=== PATIENT | male | born 1940 | race Caucasian/White ===

== ENCOUNTER → 2016-10-09 | Outpatient (REF) | payer MEDICARE ==
[~2016-10-09] MED LIST: /ESOM40CA PO; ACET500C; ADVIL; ASPI325T OR; CIPR25SS OR; DIAZ2TAB PO; DIAZ5TAB; ECOT500T; NEXI20CA PO; SYSTANE OP; TESTPOW5; TRAM50TA2; TRAM50TA2 OR; ZANA4CAP; [UNRECOGNIZED DRUG - REMARK]; [UNRECOGNIZED DRUG - REMARK]; [UNRECOGNIZED DRUG - REMARK]; [UNRECOGNIZED DRUG - REMARK]; pennsaid TOP
[2016-10-09 11:27] LABS: MEAN CORPUSCULAR HEMOGLOBIN 30.4 pg (27.0-33.0); MEAN CORPUSCULAR HGB CONC 33.4 g/dl (32.0-36.5); MEAN CORPUSCULAR VOLUME 90.8 fl (80.0-96.0); RED CELL DISTRIBUTION WIDTH 13.3 % (11.5-14.5); WHITE BLOOD COUNT 5.4 K/mm3 (4.0-10.0)
[2016-10-09 12:25] LABS: URIC ACID 6.5 MG/DL (3.5-7.2)
[2016-10-09 12:33] LABS: ALKALINE PHOSPHATASE 67 U/L (45-117); ALT/SGPT 25 U/L (12-78); ANION GAP 5 MEQ/L (8-16); AST/SGOT 20 U/L (15-37); BILIRUBIN,TOTAL 0.8 MG/DL (0.2-1.0); BLOOD UREA NITROGEN 23 MG/DL (7-18); CALCIUM LEVEL 9.9 MG/DL (8.8-10.2); CARBON DIOXIDE LEVEL 29 MEQ/L (21-32); CHLORIDE LEVEL 107 MEQ/L (98-107); CREATININE FOR GFR 1.56 MG/DL (0.70-1.30); GLOMERULAR FILTRATION RATE 46.3 (>42); GLUCOSE, FASTING 99 MG/DL (83-110); POTASSIUM SERUM 4.7 MEQ/L (3.5-5.1); SODIUM LEVEL 141 MEQ/L (136-145)
[2016-10-09 12:34] LABS: ALBUMIN/GLOBULIN RATIO 1.25 (1.00-1.93); TOTAL PROTEIN 7.2 GM/DL (6.4-8.2)
== END ==
LOC: M SFHCCLAY 07:48
PROVIDERS: ATTEND Family Medicine
DX: M79.1 Myalgia (principal); M25.50 Pain in unspecified joint
CPT/HCPCS: 80053; 82550; 84550; 85027; 85652; 86038; 86140; 86431; G0463

== ENCOUNTER → 2016-11-26 | Outpatient (CLI) | payer MEDICARE ==
--- NOTE | 2016-11-26 14:39 | REP ---
RIGHT HIP, TWO VIEWS: HISTORY: Groin strain. There is no acute fracture or dislocation. There is narrowing of the joint space. There is sclerosis of the acetabulum. IMPRESSION: Degenerative change as described above.
== END ==
LOC: M CLY 13:11
PROVIDERS: ATTEND Family Medicine
DX: S76.211A Strain of adductor muscle, fascia and tendon of right thigh, initial encounter (principal); X58.XXXA Exposure to other specified factors, initial encounter; Y92.89 Other specified places as the place of occurrence of the external cause; Y93.89 Activity, other specified; Y99.8 Other external cause status
CPT/HCPCS: 73502; G0463

== ENCOUNTER → 2016-12-23 | Outpatient (CLI) | payer MEDICARE ==
--- NOTE | 2016-12-23 08:49 | REP ---
MRI right hip without contrast: History: New right-sided pain. There is apparently a remote prior history of testicular and renal carcinoma in the and a more recent history of bladder cancer 3 years ago. Comparison radiographs are from November 26, 2016. Technique: Large field of view coronal T1 and STIR T2 sequences of both hips are acquired. In addition, smaller field of view high resolution axial, coronal and sagittal images of the right hip were obtained with proton density and T2-weighted scans with fat saturation. Findings: There is an infiltrative mass replacing the marrow in the right superior acetabular region of the iliac bone consistent with metastatic lesion. This measures 4.2 x 3.3 x 4.8 cm. There is some early cortical destruction. There is a T2-weighted edema pattern anterior to this segment of the iliac bone consistent with cortical penetration and early extraosseous extension versus reactive edema. Lesion is low in signal intensity on T1 and hyperintense on T2-weighted imaging. There is a second smaller lesion in the subtrochanteric femur on the right measuring only 10 mm. There is an area of mixed signal intensity in the right sacrum adjacent the SI joint which appears to be degenerative. There is no evidence of pelvic mass or adenopathy. There is diverticulosis in the left colon noted. No evidence of hip joint effusion is seen on either side. There are some degenerative changes in both acetabular labral cartilages, left greater than right. Impression: There is a 4.8 cm marrow replacement mass in the right iliac bone along the superior acetabular margin compatible with a bony metastasis. A second small lesion in the right proximal femur is also noted 1 cm in diameter. The location and size of the iliac bone lesion indicate a risk of pathologic fracture. Recommend radionuclide bone scan and consideration be given to needle biopsy. Signed by Jus Hernandez MD 12/23/2016 09:05 A
--- NOTE | 2016-12-23 09:17 | REP ---
MRI LUMBAR SPINE WITHOUT CONTRAST: 12/23/2016. Comparison: MRI 04/26/2006, x-ray 03/18/2016. Clinical history: Low back pain. Technique: Sagittal T1, T2 and STIR images with axial T1 and T2 sequences. Findings: Slight reduction of the normal lordosis is maintained. Vertebral body heights were intact throughout. There is a fairly large vertebral hemangioma in the left side of the L3 vertebral body, unchanged. There is loss of disc water signal throughout the lumbar spine. Disc space is narrowed at L5-S1 with discogenic endplate changes anteriorly. There is slight narrowing of L4-5 and L2-3 disc levels sparing the other levels. No paraspinal mass. Aorta grossly intact. Conus terminates at T12-L1. T11-12, T12-L1 and L1-2 show no disc bulge or herniation and no spinal or foraminal stenosis. At L2-3, there is minimal broad-based disc bulge without central canal or foraminal stenosis. No nerve root compression. Bulges do extend into the foramina, however some minor hypertrophic facet changes. At L3-4, there is a broad-based disc bulge flattening ventral thecal sac. Bulge extends into the foramina. There is some mild encroachment on the right and with a bulge abutting the L3 nerve root similarly on the left. Slight impression on the L3 nerve root by the bulge in the foramen. At L4-5, there is also a mild broad-based disc bulge flattening the ventral thecal sac. Cross-sectional area of the canal was ample. Foramina are adequate on the left and show very mild impression upon the L4 nerve root by disc bulge and facet arthropathy. At L5-S1, there is mild broad-based disc bulge with small central disc protrusion. This does not abut or displace the S1 nerve roots in the central canal. The cross-sectional area of the central canal was adequate. The bulge extends into the foramina. There is mild encroachment on the right and left due to combined factors. Facet arthropathy noted. Impression: 1. Multilevel degenerative disc disease from L2-3 through L5-S1 with foraminal encroachment and mild nerve root compression by the disc bulge, facet arthritis at levels described above. 2. Bulges from L2-3 through L5-S1 with small central disc protrusion at L5-S1. No significant central canal stenosis. Signed by Darci Alberts MD 12/23/2016 12:26 P
== END ==
LOC: M RAD 06:34
PROVIDERS: ATTEND Family Medicine
DX: R10.30 Lower abdominal pain, unspecified (principal); M25.559 Pain in unspecified hip; M51.26 Other intervertebral disc displacement, lumbar region; M51.36 Other intervertebral disc degeneration, lumbar region; M47.896 Other spondylosis, lumbar region; M48.06 Spinal stenosis, lumbar region; M89.9 Disorder of bone, unspecified

== ENCOUNTER → 2016-12-30 | Outpatient (REF) | payer MEDICARE ==
[2016-12-30 18:35] LABS: BASO # 0.1 K/mm3 (0.0-0.2); BASO % 1.3 % (0.0-1.0); EOS # 0.2 K/mm3 (0.0-0.50); EOS % 4.1 % (0.0-3.0); LARGE UNSTAINED CELL # 0.2 K/mm3 (0.0-0.4); LARGE UNSTAINED CELL % 2.4 % (0.0-4.0); LYMPH # 1.7 K/mm3 (1.5-4.5); MEAN CORPUSCULAR HEMOGLOBIN 31.6 pg (27.0-33.0); MEAN CORPUSCULAR HGB CONC 33.6 g/dl (32.0-36.5); MONO # 0.4 K/mm3 (0.0-0.8); NEUTROPHILS # 3.6 K/mm3 (1.8-7.7); NEUTROPHILS % 60.2 % (36.0-66.0); PLATELET COUNT, AUTOMATED 187 k/mm3 (150-450); RED CELL DISTRIBUTION WIDTH 13.6 % (11.5-14.5)
[2016-12-30 19:03] LABS: ALBUMIN 3.8 GM/DL (3.2-5.2); ALBUMIN/GLOBULIN RATIO 1.09 (1.00-1.93); ALKALINE PHOSPHATASE 66 U/L (45-117); ALT/SGPT 24 U/L (12-78); ANION GAP 8 MEQ/L (8-16); AST/SGOT 16 U/L (15-37); BILIRUBIN,TOTAL 0.7 MG/DL (0.2-1.0); BLOOD UREA NITROGEN 27 MG/DL (7-18); CALCIUM LEVEL 9.7 MG/DL (8.8-10.2); CARBON DIOXIDE LEVEL 26 MEQ/L (21-32); CHLORIDE LEVEL 107 MEQ/L (98-107); CREATININE FOR GFR 1.47 MG/DL (0.70-1.30); GLOMERULAR FILTRATION RATE 49.5 (>42); GLUCOSE, FASTING 101 MG/DL (83-110); POTASSIUM SERUM 4.5 MEQ/L (3.5-5.1); SODIUM LEVEL 141 MEQ/L (136-145); TOTAL PROTEIN 7.3 GM/DL (6.4-8.2)
[2016-12-30 19:08] LABS: ERYTHROCYTE SEDIMENTATION RATE 4 mm/hr (0-20)
[2016-12-31 12:09] LABS: ALBUMIN 4.47 GM/DL (3.29-5.55); ALBUMIN % 61.3 % (55.8-66.1); GAMMA GLOBULIN % 13.7 % (11.1-18.8)
[2017-01-01 09:20] LABS: CA 125 4.8 U/ML (<30.2)
== END ==
LOC: M SFHCCLAY 11:46
PROVIDERS: ATTEND Family Medicine
DX: C79.51 Secondary malignant neoplasm of bone (principal); C85.99 Non-Hodgkin lymphoma, unspecified, extranodal and solid organ sites; Z12.5 Encounter for screening for malignant neoplasm of prostate; Z79.899 Other long term (current) drug therapy; R93.8 Abnormal findings on diagnostic imaging of other specified body structures
CPT/HCPCS: 80053; 84165; 84702; 85025; 85652; 86140; 86304; G0103; G0463

== ENCOUNTER → 2017-01-07 | Outpatient (CLI) | payer MEDICARE ==
--- NOTE | 2017-01-07 13:33 | REP ---
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 Patient also has a history of renal cell carcinoma and bladder carcinoma in 1990 and 2010 respectfully. After the intravenous administration of 21.9 mCi of technetium-99m MDP a total body bone scan was obtained. Degenerative uptake pattern is seen in the shoulder, sternoclavicular joints, hips right greater than left, and knees right greater than left. Degenerative type uptake is also seen in the wrist. No abnormal focal increased or decreased radionuclide accumulation is seen in any of the imaged axial or appendicular skeleton that would be considered consistent with metastatic disease. IMPRESSION: Uptake consistent with degenerative changes as described above. Signed by Zack Sanches DO 01/07/2017 02:26 P
== END ==
LOC: M RAD 09:46
PROVIDERS: ATTEND Family Medicine
DX: C79.51 Secondary malignant neoplasm of bone (principal); Z85.47 Personal history of malignant neoplasm of testis; Z85.53 Personal history of malignant neoplasm of renal pelvis; Z85.51 Personal history of malignant neoplasm of bladder
CPT/HCPCS: 78306; A9503

== ENCOUNTER → 2017-02-24 | Outpatient (REF) | payer MEDICARE | LOC: M SFHCCLAY 15:49 | PROVIDERS: ATTEND Family Medicine | DX: N18.3 Chronic kidney disease, stage 3 (moderate) (principal); C64.1 Malignant neoplasm of right kidney, except renal pelvis; Z53.8 Procedure and treatment not carried out for other reasons ==

== ENCOUNTER → 2017-03-03 | Outpatient (REF) | payer MEDICARE ==
[2017-03-03 17:31] LABS: CALCIUM LEVEL 9.2 MG/DL (8.8-10.2); CREATININE FOR GFR 1.44 MG/DL (0.70-1.30); GLOMERULAR FILTRATION RATE 50.6 (>42); POTASSIUM SERUM 4.8 MEQ/L (3.5-5.1)
[2017-03-03 17:45] LABS: MEAN CORPUSCULAR HEMOGLOBIN 31.8 pg (27.0-33.0); MEAN CORPUSCULAR HGB CONC 34.5 g/dl (32.0-36.5); MEAN CORPUSCULAR VOLUME 92.2 fl (80.0-96.0); RED CELL DISTRIBUTION WIDTH 13.8 % (11.5-14.5); WHITE BLOOD COUNT 5.1 K/mm3 (4.0-10.0)
== END ==
LOC: M SFHCCLAY 12:41
PROVIDERS: ATTEND Family Medicine
DX: N18.3 Chronic kidney disease, stage 3 (moderate) (principal); C64.1 Malignant neoplasm of right kidney, except renal pelvis

== ENCOUNTER → 2017-03-12 | Outpatient (CLI) | payer MEDICARE ==
--- NOTE | 2017-03-12 14:40 | REP ---
MR LUMBAR SPINE WITHOUT AND WITH CONTRAST: HISTORY: Renal cell carcinoma. CONTRAST: ProHance 9 mL. COMPARISON: 12/23/2016 Decreased signal intensity on T2-weighted images is present in the lumbar intervertebral discs. The L2-3, L4-5, and L5-S1 intervertebral discs are decreased in height. These findings are consistent with disc degeneration. There is no disc bulge or herniation at the L1-2 level. The L1 nerves exit the neural foramina without compression. A diffuse disc bulge is present at the L2-3 level. There is minimal compression of the thecal sac. There is hypertrophy of the posterior articulating facets. The L3 nerves exit the neural foramina without compression. A diffuse disc bulge is present at the L3-4 level. There is minimal compression of the thecal sac. There is hypertrophy of the posterior articulating facets. The L3 nerves exit the neural foramina without compression. A diffuse disc bulge is present at the L4-5 level. There is minimal compression of the thecal sac. There is hypertrophy of the posterior articulating facets. The L4 nerves exit the neural foramina without compression. A diffuse disc bulge and small central disc protrusion are present at the L5-S1 level. There is minimal compression of the thecal sac. There is hypertrophy of the posterior articulating facets. There is compression of the L5 nerves in the neural foramina. The conus medullaris is normal in appearance terminating at the level of the T12-L1 intervertebral disc. A hemangioma is present in the L3 vertebral body. Increased signal intensity on T2-weighted images is present in the endplates of the L5 and S1 vertebral bodies. This represents degenerative change. IMPRESSION: 1. Diffuse disc bulges at the L2-3 through L4-5 levels with minimal thecal sac compression. 2. Diffuse disc bulge and small central disc protrusion at the L5-S1 level with minimal thecal sac compression. There is compression of the L5 nerves in the neural foramina. There is no significant change compared to the previous study. Signed by Jeffry Patel MD 03/12/2017 02:53 P
== END ==
LOC: M PLARAD 11:10
PROVIDERS: ATTEND Family Medicine
DX: M54.17 Radiculopathy, lumbosacral region (principal); M51.26 Other intervertebral disc displacement, lumbar region; M51.27 Other intervertebral disc displacement, lumbosacral region
CPT/HCPCS: 72158; A9576

== ENCOUNTER → 2017-04-02 | Outpatient (CLI) | payer MEDICARE ==
--- NOTE | 2017-04-02 17:04 | REP ---
MRI PELVIS: TECHNIQUE: Multiple sequences obtained in the axial, coronal and sagittal planes. There is a large bone lesion expanding the cortex in the right inferior iliac bone at the superior aspect of the right acetabulum. The lesion is hypointense on T1 and hyperintense on T2. The lesions measures 4.4 x 5.1 x 3.9 cm. There is adjacent ill defined high signal in the right iliacus muscle with diffuse edematous change. I can not exclude some degree of invasion of the right iliacus muscle. Incidental note is made of a rounded lesion in the L3 vertebral bodies suspicious for a metastatic lesion. Subtle ill-defined low signal on T1 and high signal on T2 weighted images is seen in the proximal right humerus possibly representing a subtle early metastatic lesion. No other bone lesions are seen. No pelvis mass is seen. 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 Adjacent edema in the right iliacus muscle. I can not exclude some degree of neoplastic infiltration of the muscle. I also can not exclude some degree of neoplastic infiltration of the right gluteus minimus muscle. Metastatic lesion L3 vertebral body. Possible early metastatic lesion proximal right femur. Signed by Marky Kim MD 04/02/2017 05:27 P
== END ==
LOC: M RAD 14:12
PROVIDERS: ATTEND Family Medicine
DX: C79.51 Secondary malignant neoplasm of bone (principal); R10.2 Pelvic and perineal pain

== ENCOUNTER → 2017-08-06 | Outpatient (CLI) | payer MEDICARE | LOC: M RAD 11:44 | DX: M89.9 Disorder of bone, unspecified (principal) | CPT/HCPCS: 72190 ==

== ENCOUNTER → 2018-04-13 | Outpatient (CLI) | payer MEDICARE | LOC: M CLY 09:36 | DX: C64.1 Malignant neoplasm of right kidney, except renal pelvis (principal); Z98.1 Arthrodesis status; M85.80 Other specified disorders of bone density and structure, unspecified site | CPT/HCPCS: 71100 ==

== ENCOUNTER → 2018-04-27 | Outpatient (CLI) | payer MEDICARE | LOC: M RAD 08:19 | DX: R19.00 Intra-abdominal and pelvic swelling, mass and lump, unspecified site (principal); R91.8 Other nonspecific abnormal finding of lung field | CPT/HCPCS: 71250 ==

== ENCOUNTER → 2018-05-24 | Outpatient (CLI) | payer MEDICARE | LOC: M RAD 11:29 | DX: C64.9 Malignant neoplasm of unspecified kidney, except renal pelvis (principal); C62.90 Malignant neoplasm of unspecified testis, unspecified whether descended or undescended; D49.4 Neoplasm of unspecified behavior of bladder; C79.51 Secondary malignant neoplasm of bone; Z23 Encounter for immunization | CPT/HCPCS: 72190 ==

== ENCOUNTER → 2018-07-25 | Outpatient (REF) | payer MEDICARE ==
[2018-07-25 17:04] LABS: HEMATOCRIT 37.4 % (42.0-52.0); HEMOGLOBIN 11.5 g/dl (13.5-17.5); MEAN CORPUSCULAR HEMOGLOBIN 27.9 pg (27.0-33.0); MEAN CORPUSCULAR HGB CONC 30.7 g/dl (32.0-36.5); MEAN CORPUSCULAR VOLUME 90.8 fl (80.0-96.0); PLATELET COUNT, AUTOMATED 269 10^3/uL (150-450); RED BLOOD COUNT 4.12 10^6/uL (4.30-6.10)
[2018-07-25 17:17] LABS: ALBUMIN 3.5 GM/DL (3.2-5.2); BILIRUBIN,TOTAL 0.5 MG/DL (0.2-1.0); CREATININE FOR GFR 1.34 MG/DL (0.70-1.30); GLOMERULAR FILTRATION RATE 54.9 (>42); PERCENT SATURATION 18.5 % (19.7-50.0); POTASSIUM SERUM 4.8 MEQ/L (3.5-5.1); THYROID STIMULATING HORMONE 2.19 uIU/ML (0.358-3.740)
== END ==
LOC: M SFHCCAPE 10:46
PROVIDERS: ATTEND Family Medicine
DX: C79.51 Secondary malignant neoplasm of bone (principal); C64.1 Malignant neoplasm of right kidney, except renal pelvis; C85.99 Non-Hodgkin lymphoma, unspecified, extranodal and solid organ sites; I25.10 Atherosclerotic heart disease of native coronary artery without angina pectoris; K21.9 Gastro-esophageal reflux disease without esophagitis; N18.3 Chronic kidney disease, stage 3 (moderate); M49.82 Spondylopathy in diseases classified elsewhere, cervical region; E78.00 Pure hypercholesterolemia, unspecified; M79.10 Myalgia, unspecified site; M25.50 Pain in unspecified joint; Z12.5 Encounter for screening for malignant neoplasm of prostate

== ENCOUNTER → 2018-07-29 | Outpatient (CLI) | payer MEDICARE ==
--- NOTE | 2018-07-29 14:23 | REP ---
Unilateral left ribs PA chest of five views History: Metastatic tumor Comparison: 04/13/2018 The lungs are clear. The heart is normal in size. The pulmonary vasculature is normal in appearance. The patient is status post kyphoplasty of two mid thoracic vertebral bodies. There is a possible metastatic lesion in the left T7 rib. Impression: There is a possible metastatic lesion in the left T7 rib. A nuclear medicine bone scan may be helpful for further evaluation.
== END ==
LOC: M CLY 11:41
PROVIDERS: ATTEND Family Medicine
DX: C79.51 Secondary malignant neoplasm of bone (principal); C64.1 Malignant neoplasm of right kidney, except renal pelvis

== ENCOUNTER → 2018-12-14 | Outpatient (CLI) | payer MEDICARE ==
[~2018-12-14] MED LIST changes: -/ESOM40CA PO; +NEXI1CAP3 PO
--- NOTE | 2018-12-14 13:22 | REP ---
REASON: Pain and dyspnea. COMPARISON: Frontal view of the chest obtained 07/29/2018 as part of a rib series. Cardiomediastinal silhouette is unchanged. Mild fibrotic changes seen throughout the lung harkins status quo. No acute patchy parenchymal opacities or pleural effusions have developed. The heart is not enlarged. Chronic change seen involving the imaged osseous structures status quo. IMPRESSION: No evidence of acute cardiopulmonary disease. Electronically Signed by Zack Sanches DO 12/14/2018 03:25 P
== END ==
LOC: M RAD 11:54 → M LAB 11:54
PROVIDERS: ATTEND Thoracic Surgery (Cardiothoracic Vascular Surgery)
DX: R07.81 Pleurodynia (principal); R06.00 Dyspnea, unspecified